=== PATIENT | male | born 1955 | race Caucasian/White ===

== ENCOUNTER → 2016-11-11 | Day surgery (SDC) | payer OTHER ==
[~2016-11-11] MED LIST: ALFUZOSIN HCL10 MG PO; AZITHROMYCIN250 MG PO; DICLOFENAC PO; FLONASE 0.05% N16 G1; MOTRIN400 MG PO; PEPCID PO; UROXATRAL10 MG PO; VISTARIL PO; ZOFRAN ODT4 MG PO
--- NOTE | ~2016-11-11 | OR ---
Unit #: [id number] #: [id number] Patient: COURTNEY JAMES [id number] [address] [address] [id number] MR#: [id number] NAME: COURTNEY JAMES ROOM: Date of Procedure: 11/11/2016 Admission Date: 11/11/2016 Surgeon: Shahid Perez Jr., M.D. : 1955 Attending Physician: Shahid Perez Jr., M.D. OPERATIVE REPORT INDICATION FOR PROCEDURE The patient is a 61-year-old white male, who recently presented to the office complaining of enlarging mass of the right posterior scalp. This caused some sensitivity and pain and it has gotten much bigger over the last couple of years. He is brought in at this time for excision of this. PREOPERATIVE DIAGNOSIS Large mass of the right posterior occipital scalp. POSTOPERATIVE DIAGNOSIS Large mass of the right posterior occipital scalp, noting approximately 7 cm mass appeared to be possibly a cyst or lipoma. ANESTHESIA MAC anesthesia with 1% Xylocaine with epinephrine locally. PROCEDURE PERFORMED Excision of large mass of the right posterior occipital area. DESCRIPTION OF PROCEDURE The patient was positioned in left lateral decubitus position. After being prepped and draped in routine fashion, he was given MAC anesthesia and then locally anesthetized with 1% Xylocaine with epinephrine. An elliptical incision was made around the mass with it being totally excised from the surrounding tissue and down to the deeper subcutaneous tissue and down to the periosteum. This was all done with a #10 blade scalpel. After it was completely removed, hemostasis achieved with Bovie cautery. The deeper tissue approximated with interrupted 3-0 Vicryl sutures. Skin edges approximated with interrupted 2-0 nylon mattress stitches. Ointment and dressing were applied externally. Estimated blood loss minimal. No drains used. No complications. The patient received less than 500 mL crystalloid solution during the procedure. Sponges and instruments counts correct x3. The patient was taken to the discharge area with stable vital signs for discharge in satisfactory condition. Dictated by... Shahid Perez Jr., M.D. JMB/lenora TD: 11/12/2016 02:44 Unit #: [id number] #: [id number] Patient: COURTNEY JAEMS JOB #: [id number] OPERATIVE REPORT Page 1 of 1 X Shahid Perez MD PROCEDURE OPERATIVE NOTE
== END | disposition home or self-care (01) ==
LOC: CSUR 09:30
DX: D17.0 Benign lipomatous neoplasm of skin and subcutaneous tissue of head, face and neck (principal); E66.9 Obesity, unspecified; M17.0 Bilateral primary osteoarthritis of knee; N40.0 Benign prostatic hyperplasia without lower urinary tract symptoms; Z68.41 Body mass index [BMI] 40.0-44.9, adult; Z83.3 Family history of diabetes mellitus; Z98.890 Other specified postprocedural states
CPT/HCPCS: 88304; J2250; J2405; J3010